=== PATIENT | female | born 1970 | race Two or more races ===

== ENCOUNTER 2017-06-29 19:23 | Observation (INO) | payer MEDICAID ==
[2017-06-29] MEDS ORDERED: NS 500 ML IV ONE ×2 (19:35)
--- NOTE | 2017-06-29 19:35 | EDPHY ---
H & P Stated Complaint: Pt reports having 2 periods and now having CP and SOB Time Seen by Provider: 06/29/17 19:35 HPI/ROS: HPI: This is a 47-year-old female who presents Chief Complaint: Pt reports having 2 periods and now having CP and SOB Location: Quality: Duration: Signs and Symptoms: Timing: Severity: Context: Modifying Factors: Comment: ROS: see HPI Constitutional: No fever, no chills, no weight loss Eyes: No blurred vision Respiratory: No shortness of breath, no cough Cardiovascular: No chest pain Gastrointestinal: No nausea, no vomiting, no diarrhea Genitourinary: No dysuria Extremities: No myalgias Neurologic: No weakness, no numbness Skin: No rashes Hematologic: No bruising, no bleeding MEDICAL/SURGICAL/SOCIAL HISTORY: Medical history: Generally healthy. Does not take any regular medications. Surgical history: Denies Social history: CONSTITUTIONAL: awake and alert, no obvious distress HEENT: Atraumatic and normocephalic, PERRL, EOMI. Tympanic membranes clear. Oropharynx clear, no exudate and moist pink mucosa. Airway patent. No lymphadenopathy. No meningismus. Cardiovascular: Normal S1/S2, regular rate, regular rhythm, without murmur rub or gallop. PULMONARY/CHEST: Symmetrical and nontender. Clear to auscultation bilaterally. Good air movement. No accessory muscle usage. ABDOMEN: Soft, nondistended, nontender, no rebound, no guarding, no peritoneal signs, no masses or organomegaly. No CVAT. EXTREMITIES: 2/2 pulses, strength 5/5, no deformities, no clubbing, no cyanosis or edema. NEUROLOGICAL: no focal neuro deficits. GCS 15. SKIN: Warm and dry, no erythema. no rash. Good capillary refill. Source: Patient Exam Limitations: No limitations - Personal History LMP (Females 10-55): Now Current Tetanus/Diphtheria Vaccine: No Current Tetanus Diphtheria and Acellular Pertussis (TDAP): No - Medical/Surgical History Hx Asthma: No Hx Chronic Respiratory Disease: No Hx Diabetes: No Hx Cardiac Disease: No Hx Renal Disease: No Hx Cirrhosis: No Hx Alcoholism: No Hx HIV/AIDS: No Hx Splenectomy or Spleen Trauma: No Other PMH: tubal - Social History Smoking Status: Never smoked Constitutional: Initial Vital Signs Temperature (C) 36.9 C 06/29/17 19:27 Heart Rate 122 H 06/29/17 19:27 Respiratory Rate 20 06/29/17 19:27 Blood Pressure 211/124 H 06/29/17 19:27 O2 Sat (%) 100 06/29/17 19:27 O2 Delivery Mode Room Air Allergies/Adverse Reactions: No Known Allergies Allergy (Unverified 06/29/17 19:30) Home Medications: Medication Instructions Recorded NK [No Known Home Meds] 06/29/17 Departure - Departure Condition: Fair Referrals: NONE *PRIMARY CARE P,. [Primary Care Provider] - As per Instructions
--- NOTE | 2017-06-29 19:42 | CPEKG ---
Heart Rate: 115 RR Interval: 522 P-R Interval: 148 QRSD Interval: 90 QT Interval: 328 QTC Interval: 454 P [place]: 50 QRS [place]: -7 T Wave [place]: 60 EKG Severity - ABNORMAL ECG - EKG Impression: SINUS TACHYCARDIA EKG Impression: PROBABLE LVH WITH SECONDARY REPOL ABNRM EKG Impression: LATERAL Q WAVES, PROBABLY DUE TO LVH Electronically Signed By: Vamsi Solis 29-Jun-2017 21:32:40
--- NOTE | 2017-06-29 19:47 | EDPHY ---
H & P Stated Complaint: Pt reports having 2 periods and now having CP and SOB Time Seen by Provider: 06/29/17 19:35 HPI/ROS: CHIEF COMPLAINT: Chest pain, shortness of breath, history of heavy uterine bleeding HISTORY OF PRESENT ILLNESS: The patient presents to the ED with a 1 day history of chest pain and shortness of breath which she characterizes as exertional dyspnea. The patient reportedly developed dysfunctional uterine bleeding 2 weeks ago while traveling in [place]. She reportedly was seen at a healthcare facility and was unable to receive a transfusion secondary to lack of blood availability. Over the past several days her bleeding has improved but continues. The patient does have a prior history of tubal ligation. The patient typically has regular periods without dysmenorrhea. The patient does have a history of hypertension and takes no medications for this condition. The patient has not seen a primary care provider secondary to being homeless. REVIEW OF SYSTEMS: A comprehensive 10 point review of systems is otherwise negative aside from elements mentioned in the history of present illness. Source: Patient Exam Limitations: No limitations - Personal History LMP (Females 10-55): Now Current Tetanus/Diphtheria Vaccine: No Current Tetanus Diphtheria and Acellular Pertussis (TDAP): No - Medical/Surgical History Hx Asthma: No Hx Chronic Respiratory Disease: No Hx Diabetes: No Hx Cardiac Disease: No Hx Renal Disease: No Hx Cirrhosis: No Hx Alcoholism: No Hx HIV/AIDS: No Hx Splenectomy or Spleen Trauma: No Other PMH: tubal - Social History Smoking Status: Never smoked - Physical Exam Exam: General Appearance: Alert, no distress Eyes: Pupils equal and round no pallor or injection, pallorous ENT, Mouth: Mucous membranes moist Respiratory: There are no retractions, lungs are clear to auscultation Cardiovascular: Regular rate and rhythm, tachycardic Gastrointestinal: Abdomen is soft and nontender, no masses, bowel sounds normal Pelvic: Patient has a chronic large Bartholin cyst which has been present for decades for noted on the left labia, speculum examination demonstrates no obvious source of bleeding, no significant ongoing hemorrhage noted, scant blood noted in the vault Neurological: A&O, normal motor function, normal sensory exam, normal cranial nerves Skin: Warm and dry, no rashes Musculoskeletal: Neck is supple nontender Extremities: symmetrical, full range of motion Psychiatric: Patient is oriented X 3, there is no agitation Constitutional: Initial Vital Signs Temperature (C) 36.9 C 06/29/17 19:27 Heart Rate 122 H 06/29/17 19:27 Respiratory Rate 20 06/29/17 19:27 Blood Pressure 211/124 H 06/29/17 19:27 O2 Sat (%) 100 06/29/17 19:27 O2 Delivery Mode Room Air Allergies/Adverse Reactions: No Known Allergies Allergy (Unverified 06/29/17 19:30) Home Medications: Medication Instructions Recorded NK [No Known Home Meds] 06/29/17 Medical Decision Making - Diagnostics EKG Interpretation: EKG: Complete interpretation has been separately recorded in the [facility] archive. Summary impression: Sinus tachycardia, LVH, nonspecific ST T wave changes noted. Imaging Results: Imaging Impressions Chest X-Ray 06/29/17 19:35 Impression: Normal. ED Course/Re-evaluation: Patient presents to the ED with multiple issues 1. Is untreated hypertension 2. Is chest pain and dyspnea in the setting of a recent uterine bleed in 3. Is significant anemia. I do believe the etiology of the patient's chest pain and dyspnea secondary to her anemia. The patient is noted to have a hemoglobin of 5.5. She was typed and crossed for 2 units of blood. The patient had no severe uterine bleeding while in the department. The patient does have a history of hypertension which she is not treating. The patient was started on 50 mg of metoprolol for her hypertension and tachycardia. Pelvic exam demonstrates no evidence of an obvious external source of bleeding. There is a scant amount of blood noted in the vaginal canal. A pelvic ultrasound has been ordered. Consultation was made with Dr. Noemi Lebron from the hospitalist service. The patient will be admitted to the hospital for further management of her anemia, hypertension and dysfunctional uterine bleeding. While the patient does have an elevated D-dimer I feel this is consistent with her uterine bleeding and not secondary to pulmonary embolism. I believe the etiology of her dyspnea on exertion is secondary to her anemia. I have not pursued a diagnosis of pulmonary embolism at this point time. Re-examination at 10:45 p.m.: Blood pressure currently 170/100. Heart rate 80. Differential Diagnosis: Differential diagnosis considered includes dysfunctional uterine bleeding, critical anemia, hypertensive emergency, coagulopathy - Data Points Laboratory Results: Laboratory Results 06/29/17 20:00 06/29/17 20:00 06/29/17 06/29/1706/29/17 20:00 20:00 20:00 WBC RBC Hgb POC Hgb Hct POC Hct MCV MCH MCHC RDW Plt Count MPV Neut % (Auto) Lymph % (Auto) [place] % (Auto) Eos % (Auto) Baso % (Auto) Nucleat RBC Rel Count Absolute Neuts (auto) Absolute Lymphs (auto) Absolute Monos (auto) Absolute Eos (auto) Absolute Basos (auto) Absolute Nucleated RBC Immature Gran % Immature Gran # Platelet Estimate Polychromasia Hypochromasia Microcytic Cells Stomatocytes Schistocytes Smear Review By PT 13.3 SEC SEC (12.0-15.0) INR 1.02 (0.83-1.16) APTT 21.0 SEC L SEC (23.0-38.0) D-Dimer POC Sodium Sodium POC Potassium Potassium POC Chloride Chloride Carbon Dioxide Anion Gap POC BUN BUN Creatinine POC Creatinine Estimated GFR Glucose POC Glucose Calcium Total Bilirubin Conjugated Bilirubin Unconjugated Bilirubin AST ALT Alkaline Phosphatase Troponin I NT-Pro-B Natriuret Pep Total Protein Albumin Lipase Beta HCG, Qual NEGATIVE Patient ABO/Rh A NEGATIVE Antibody Screen NEGATIVE Crossmatch IS Only See Detail 06/29/17 06/29/17 06/29/17 20:00 20:00 20:00 WBC 10.05 10^3/uL H 10^3/uL (3.80-9.50) RBC 2.88 10^6/uL L 10^6/uL (4.18-5.33) Hgb 5.5 g/dL L* g/dL (12.6-16.3) POC Hgb Hct 19.4 % L % (38.0-47.0) POC Hct MCV 67.4 fL L fL (81.5-99.8) MCH 19.1 pg L pg (27.9-34.1) MCHC 28.4 g/dL L g/dL (32.4-36.7) RDW 18.3 % H % (11.5-15.2) Plt Count 490 10^3/uL H 10^3/uL (150-400) MPV 9.8 fL fL (8.7-11.7) Neut % (Auto) 56.6 % % (39.3-74.2) Lymph % (Auto) 33.2 % % (15.0-45.0) [place] % (Auto) 7.4 % % (4.5-13.0) Eos % (Auto) 1.9 % % (0.6-7.6) Baso % (Auto) 0.4 % % (0.3-1.7) Nucleat RBC Rel Count 0.2 % % (0.0-0.2) Absolute Neuts (auto) 5.69 10^3/uL 10^3/uL (1.70-6.50) Absolute Lymphs (auto) 3.34 10^3/uL H 10^3/uL (1.00-3.00) Absolute Monos (auto) 0.74 10^3/uL 10^3/uL (0.30-0.80) Absolute Eos (auto) 0.19 10^3/uL 10^3/uL (0.03-0.40) Absolute Basos (auto) 0.04 10^3/uL 10^3/uL (0.02-0.10) Absolute Nucleated RBC 0.02 10^3/uL H 10^3/uL (0-0.01) Immature Gran % 0.5 % % (0.0-1.1) Immature Gran # 0.05 10^3/uL 10^3/uL (0.00-0.10) Platelet Estimate INCREASED H (ADEQ) Polychromasia 2+ H Hypochromasia 3+ H Microcytic Cells 3+ H Stomatocytes 1+ H Schistocytes 1+ H Smear Review By Pending PT INR APTT D-Dimer 0.74 ug/mLFEU H ug/mLFEU (0.00-0.50) POC Sodium Sodium 142 mEq/L mEq/L (134-144) POC Potassium Potassium 3.9 mEq/L mEq/L (3.5-5.2) POC Chloride Chloride 107 mEq/L mEq/L (97-110) Carbon Dioxide 19 mEq/l L mEq/l (22-31) Anion Gap 16 mEq/L mEq/L (8-16) POC BUN BUN 13 mg/dL mg/dL (7-23) Creatinine 0.7 mg/dL mg/dL (0.6-1.0) POC Creatinine Estimated GFR > 60 Glucose 119 mg/dL H mg/dL (70-100) POC Glucose Calcium 9.2 mg/dL mg/dL (8.5-10.4) Total Bilirubin 0.2 mg/dL mg/dL (0.1-1.4) Conjugated Bilirubin 0.0 mg/dL mg/dL (0.0-0.5) Unconjugated Bilirubin 0.2 mg/dL mg/dL (0.0-1.1) AST 30 IU/L IU/L (14-46) ALT 28 IU/L IU/L (9-52) Alkaline Phosphatase 73 IU/L IU/L (38-126) Troponin I < 0.012 ng/mL ng/mL (0.000-0.034) NT-Pro-B Natriuret Pep 70 pg/mL pg/mL (0-125) Total Protein 7.0 g/dL g/dL (6.3-8.2) Albumin 4.1 g/dL g/dL (3.5-5.0) Lipase 115 IU/L IU/L (23-300) Beta HCG, Qual Patient ABO/Rh Antibody Screen Crossmatch IS Only 06/29/17 19:57 WBC RBC Hgb POC Hgb 6.5 gm/dL L gm/dL (12.6-16.3) Hct POC Hct 19 % L % (38-47) MCV MCH MCHC RDW Plt Count MPV Neut % (Auto) Lymph % (Auto) [place] % (Auto) Eos % (Auto) Baso % (Auto) Nucleat RBC Rel Count Absolute Neuts (auto) Absolute Lymphs (auto) Absolute Monos (auto) Absolute Eos (auto) Absolute Basos (auto) Absolute Nucleated RBC Immature Gran % Immature Gran # Platelet Estimate Polychromasia Hypochromasia Microcytic Cells Stomatocytes Schistocytes Smear Review By PT INR APTT D-Dimer POC Sodium 143 mEq/L mEq/L (134-144) Sodium POC Potassium 3.5 mEq/L mEq/L (3.3-5.0) Potassium POC Chloride 110 mEq/L mEq/L (97-110) Chloride Carbon Dioxide Anion Gap POC BUN 13 mg/dL mg/dL (7-23) BUN Creatinine POC Creatinine 0.7 mg/dL mg/dL (0.6-1.0) Estimated GFR Glucose POC Glucose 125 mg/dL H mg/dL (70-100) Calcium Total Bilirubin Conjugated Bilirubin Unconjugated Bilirubin AST ALT Alkaline Phosphatase Troponin I NT-Pro-B Natriuret Pep Total Protein Albumin Lipase Beta HCG, Qual Patient ABO/Rh Antibody Screen Crossmatch IS Only Medications Given: Discontinued Medications Diphenhydramine HCl (Benadryl Injection) 50 mg IVP EDNOW ONE Stop: 06/29/17 22:20 Last Admin: 06/29/17 22:29 Dose: 50 mg Sodium Chloride (Ns) 500 mls @ 1,000 mls/hr IV EDNOW ONE PRN Reason: Protocol Stop: 06/29/17 20:04 Last Admin: 06/29/17 20:05 Dose: 500 mls Sodium Chloride (Ns) 500 mls @ 0 mls/hr IV EDNOW ONE; Wide Open PRN Reason: Protocol Stop: 06/29/17 19:36 Last Admin: 06/29/17 20:05 Dose: 500 mls Metoprolol Tartrate (Lopressor) 50 mg PO EDNOW ONE Stop: 06/29/17 21:21 Last Admin: 06/29/17 21:32 Dose: 50 mg Point of Care Test Results: 06/29/17 19:57 POC Sodium 143 POC Potassium 3.5 POC Chloride 110 POC BUN 13 POC Creatinine 0.7 POC Glucose 125 H Departure - Departure Disposition: [facility] Inpatient Acute Clinical Impression: Anemia, Hypertension, Dyspnea Condition: Fair
[2017-06-29 20:34] LABS: % IMMATURE GRANULYOCYTES 0.5 % (0.0-1.1); ABSOLUTE IMMATURE GRANULOCYTES 0.05 10^3/uL (0.00-0.10); ABSOLUTE NRBC COUNT 0.02 10^3/uL (0-0.01); ADD DIFF? NO; ADD MORPH? YES; ADD SCAN? NO; ATYPICAL LYMPHOCYTE FLAG 20 (0-99); FRAGMENT RBC FLAG 40 (0-99); HEMATOCRIT 19.4 % (38.0-47.0); LEFT SHIFT FLG 0 (0-99); LIPEMIA HEMOLYSIS FLAG 70 (0-99); MEAN CELL HEMOGLOBIN 19.1 pg (27.9-34.1); MEAN PLATELET VOLUME 9.8 fL (8.7-11.7); NRBC-AUTO% 0.2 % (0.0-0.2); PLATELET CLUMPS FLAG 0 (0-99); PLATELET COUNT 490 10^3/uL (150-400); RED BLOOD CELL COUNT 2.88 10^6/uL (4.18-5.33); RED CELL DISTRIBUTION WIDTH 18.3 % (11.5-15.2)
[2017-06-29 20:39] LABS: ALANINE AMINOTRANSFERASE 28 IU/L (9-52); ALBUMIN 4.1 g/dL (3.5-5.0); ALKALINE PHOSPHATASE 73 IU/L (38-126); ANION GAP 16 mEq/L (8-16); ASPARTATE AMINOTRANSFERASE 30 IU/L (14-46); BILIRUBIN,TOTAL 0.2 mg/dL (0.1-1.4); BILIRUBIN-UNCONJUGATED 0.2 mg/dL (0.0-1.1); CALCIUM 9.2 mg/dL (8.5-10.4); CARBON DIOXIDE 19 mEq/l (22-31); CHLORIDE 107 mEq/L (97-110); CREATININE 0.7 mg/dL (0.6-1.0); GLOMERULAR FILTRATION RATE > 60; GLUCOSE 119 mg/dL (70-100); MEAN CELL HEMOGLOBIN CONCENTR. 28.4 g/dL (32.4-36.7); MEAN CELL VOLUME 67.4 fL (81.5-99.8); POTASSIUM 3.9 mEq/L (3.5-5.2); SODIUM 142 mEq/L (134-144)
[2017-06-29 20:42] LABS: HEMOGLOBIN 5.5 g/dL (12.6-16.3)
[2017-06-29 20:51] LABS: TROPONIN I < 0.012 ng/mL (0.000-0.034)
[2017-06-29 21:06] LABS: HYPOCHROMIA 3+; MICROCYTES 3+; PLATELET ESTIMATE INCREASED (ADEQ); POLYCHROMASIA 2+; SCHISTOCYTES 1+; STOMATOCYTES 1+
[2017-06-29] MEDS ORDERED: METOPROLOL TARTRATE 50 MG TAB PO ONE (21:20)
[2017-06-29 22:32] LABS: INR 1.02 (0.83-1.16); PROTIME(PATIENT) 13.3 SEC (12.0-15.0)
[2017-06-29] MEDS ORDERED: LORazepam 0.5 MG TAB PO PRN (22:58)
[2017-06-29] MEDS ORDERED: diphenhydrAMINE 25 MG CAP PO PRN (22:58)
[2017-06-29] MEDS ORDERED: HYDROCODONE/APAP 5/325 TAB PO PRN (22:58)
[2017-06-29] MEDS ORDERED: ONDANSETRON 4 MG/2 ML VIAL IVP PRN (22:58)
[2017-06-29] MEDS ORDERED: ACETAMINOPHEN 325 MG TAB PO PRN (22:58)
[2017-06-29] MEDS ORDERED: NS 1,000 ML IV SCH (23:00)
[2017-06-30] MEDS ORDERED: hydrALAZINE 20 MG/ML VIAL IVP PRN (01:27)
[2017-06-30 05:18] LABS: % IMMATURE GRANULYOCYTES 0.7 % (0.0-1.1); ABSOLUTE IMMATURE GRANULOCYTES 0.07 10^3/uL (0.00-0.10); ABSOLUTE NRBC COUNT 0.02 10^3/uL (0-0.01); ADD DIFF? NO; ADD MORPH? YES; ADD SCAN? NO; ATYPICAL LYMPHOCYTE FLAG 20 (0-99); FRAGMENT RBC FLAG 40 (0-99); HEMATOCRIT 24.5 % (38.0-47.0); LEFT SHIFT FLG 0 (0-99); LIPEMIA HEMOLYSIS FLAG 70 (0-99); MEAN CELL HEMOGLOBIN 20.6 pg (27.9-34.1); MEAN CELL VOLUME 72.3 fL (81.5-99.8); MEAN PLATELET VOLUME 9.9 fL (8.7-11.7); NRBC-AUTO% 0.2 % (0.0-0.2); PLATELET CLUMPS FLAG 0 (0-99); PLATELET COUNT 397 10^3/uL (150-400); RED BLOOD CELL COUNT 3.39 10^6/uL (4.18-5.33)
[2017-06-30 05:23] LABS: MEAN CELL HEMOGLOBIN CONCENTR. 28.6 g/dL (32.4-36.7); RED CELL DISTRIBUTION WIDTH 20.3 % (11.5-15.2)
[2017-06-30 05:37] LABS: ANION GAP 12 mEq/L (8-16); CALCIUM 8.4 mg/dL (8.5-10.4); CARBON DIOXIDE 20 mEq/l (22-31); CHLORIDE 109 mEq/L (97-110); CREATININE 0.7 mg/dL (0.6-1.0); GLOMERULAR FILTRATION RATE > 60; GLUCOSE 89 mg/dL (70-100); POTASSIUM 3.7 mEq/L (3.5-5.2); SODIUM 141 mEq/L (134-144)
[2017-06-30 06:28] LABS: HYPOCHROMIA 3+; MICROCYTES 3+; PLATELET ESTIMATE ADEQUATE (ADEQ); POLYCHROMASIA 2+
[2017-06-30 06:29] LABS: SCHISTOCYTES 1+; STOMATOCYTES 1+
[2017-06-30] MEDS ORDERED: LISINOPRIL 20 MG TAB PO SCH (09:00)
--- NOTE | 2017-06-30 09:14 | PDGENHP ---
History and Physical - Chief Complaint chest pain, shortness of breath - History of Present Illness Source - patient provides history and appears reliable. EMR also reviewed. HPI - Pleasant 47 yo F with pmhx significant for untreated hypertension who presents to the ED with complaints of heavy vaginal bleeding, SCHNEIDER and chest pain with exertion for the last 2 weeks. Patient reports she was vacationing in [place] when she developed heavy bleeding. She presented to the local hospital, received "a shot" 06/15/17 she thinks may have been hormones but did not receive any transfusions or other therapies. Patient reports regular cycles 28 days normally however patient had a her usual period and a week later developed menorrhagia. She does reports recent history of flushing/sweating. She reports some mild pelvic cramping. flow has decreased significantly in the last few days but patient continues to have chest pain and SCHNEIDER. Patient denies any syncopal episodes but does not increased fatigue and generalized weakness. Patient also with history of untreated HTN. she reports occasional BARLOW and bounding in ears "when my blood pressure is up." She denies any focal weakness/ changes in vision. History Information - Allergies/Home Medication List Allergies/Adverse Reactions: egg Allergy (Verified 06/30/17 07:58) Home Medications: Acetaminophen [Tylenol 325mg (*)] 325 mg PO DAILY PRN 06/30/17 [Last Taken Unknown] I have personally reviewed and updated: family history, medical history, social history, surgical history - Past Medical History hypertension - Surgical History Additional surgical history: BTL - Family History Additional family history: maternal uncle with throat cancer. no DUB. no DVTs. patient 5 children are all healthy - Social History Smoking Status: Never smoked Alcohol Use: None Drug Use: None Additional social history: Patient currently living with her daughter. was previously homeless. COR FULL- desires daughter Madie Guevara to act as proxy. Review of Systems Review of Systems: ROS: 10pt was reviewed & negative except for what was stated in HPI & below Constitutional: Reports: chills, malaise. Denies: fever EENMT: Reports: no symptoms Cardiac: Reports: chest pain, lightheadedness, palpitations. Denies: edema, syncope Respiratory: Reports: cough (occasional dry cough), shortness of breath. Denies : orthopnea Gastrointestinal: Reports: vomitting, nausea. Denies: diarrhea Genitourinary: Denies: dysuria, hematuria Muscolosketal: Reports: no symptoms Neurological: Reports: headache. Denies: anxiety, depressed, numbness, tingling , weakness Physical Exam Physical Exam: Temp Pulse Resp BP Pulse Ox 36.6 C 85 18 160/110 H 95 06/30/17 07:23 06/30/17 07:23 06/30/17 07:23 06/30/17 07:23 06/30/17 07:23 Constitutional: no apparent distress, not in pain, obese, other (NAD. patient lays quietly in bed. pleasant in good spirits. ) Eyes: PERRL, anicteric sclera, EOMI, No pale conjunctiva Ears, Nose, Mouth, Throat: dry mucous membranes, No poor dentition Cardiovascular: regular rate and rhythym, no murmur, rub, or gallop, No edema Peripheral Pulses: 2+: dorsalis-pedis (R), dorsalis-pedis (L) Respiratory: no respiratory distress, no rales or rhonchi, clear to auscultation Gastrointestinal: normoactive bowel sounds, soft, non-tender abdomen, no palpable masses Genitourinary: no bladder tenderness, No whittaker in urethra Skin: warm, no rashes or abrasions, other (pallor) Musculoskeletal: full muscle strength Neurologic: AAOx3, sensation intact bilaterally, CN II-XII Intact, No weakness, No facial droop Psychiatric: interacting appropriately, not anxious, thought process linear, No anxious, No depressed, No poor insight, No poor judgement, No poor memory Lab Data & Imaging Review 06/30/17 03:41 06/30/17 03:41 WBC 10.35 10^3/uL (3.80-9.50) H 06/30/17 03:41 RBC 3.39 10^6/uL (4.18-5.33) L 06/30/17 03:41 Hgb 7.0 g/dL (12.6-16.3) L 06/30/17 03:41 POC Hgb 6.5 gm/dL (12.6-16.3) L 06/29/17 19:57 Hct 24.5 % (38.0-47.0) L 06/30/17 03:41 POC Hct 19 % (38-47) L 06/29/17 19:57 MCV 72.3 fL (81.5-99.8) L 06/30/17 03:41 MCH 20.6 pg (27.9-34.1) L 06/30/17 03:41 MCHC 28.6 g/dL (32.4-36.7) L 06/30/17 03:41 RDW 20.3 % (11.5-15.2) H 06/30/17 03:41 Plt Count 397 10^3/uL (150-400) D 06/30/17 03:41 MPV 9.9 fL (8.7-11.7) 06/30/17 03:41 Neut % (Auto) 55.3 % (39.3-74.2) 06/30/17 03:41 Lymph % (Auto) 32.4 % (15.0-45.0) 06/30/17 03:41 Bibb % (Auto) 8.7 % (4.5-13.0) 06/30/17 03:41 Eos % (Auto) 2.2 % (0.6-7.6) 06/30/17 03:41 Baso % (Auto) 0.7 % (0.3-1.7) 06/30/17 03:41 Nucleat RBC Rel Count 0.2 % (0.0-0.2) 06/30/17 03:41 Absolute Neuts (auto) 5.73 10^3/uL (1.70-6.50) 06/30/17 03:41 Absolute Lymphs (auto) 3.35 10^3/uL (1.00-3.00) H 06/30/17 03:41 Absolute Monos (auto) 0.90 10^3/uL (0.30-0.80) H 06/30/17 03:41 Absolute Eos (auto) 0.23 10^3/uL (0.03-0.40) 06/30/17 03:41 Absolute Basos (auto) 0.07 10^3/uL (0.02-0.10) 06/30/17 03:41 Absolute Nucleated RBC 0.02 10^3/uL (0-0.01) H 06/30/17 03:41 Immature Gran % 0.7 % (0.0-1.1) 06/30/17 03:41 Immature Gran # 0.07 10^3/uL (0.00-0.10) 06/30/17 03:41 Platelet Estimate ADEQUATE (ADEQ) 06/30/17 03:41 Polychromasia 2+ H 06/30/17 03:41 Hypochromasia 3+ H 06/30/17 03:41 Basophilic Stippling 1+ H 06/30/17 03:41 Microcytic Cells 3+ H 06/30/17 03:41 Stomatocytes 1+ H 06/30/17 03:41 Schistocytes 1+ H 06/30/17 03:41 PT 13.3 SEC (12.0-15.0) 06/29/17 20:00 INR 1.02 (0.83-1.16) 06/29/17 20:00 APTT 21.0 SEC (23.0-38.0) L 06/29/17 20:00 D-Dimer 0.74 ug/mLFEU (0.00-0.50) H 06/29/17 20:00 POC Sodium 143 mEq/L (134-144) 06/29/17 19:57 Sodium 141 mEq/L (134-144) 06/30/17 03:41 POC Potassium 3.5 mEq/L (3.3-5.0) 06/29/17 19:57 Potassium 3.7 mEq/L (3.5-5.2) 06/30/17 03:41 POC Chloride 110 mEq/L (97-110) 06/29/17 19:57 Chloride 109 mEq/L (97-110) 06/30/17 03:41 Carbon Dioxide 20 mEq/l (22-31) L 06/30/17 03:41 Anion Gap 12 mEq/L (8-16) 06/30/17 03:41 POC BUN 13 mg/dL (7-23) 06/29/17 19:57 BUN 9 mg/dL (7-23) 06/30/17 03:41 Creatinine 0.7 mg/dL (0.6-1.0) 06/30/17 03:41 POC Creatinine 0.7 mg/dL (0.6-1.0) 06/29/17 19:57 Estimated GFR > 60 06/30/17 03:41 Glucose 89 mg/dL (70-100) 06/30/17 03:41 POC Glucose 125 mg/dL (70-100) H 06/29/17 19:57 Calcium 8.4 mg/dL (8.5-10.4) L 06/30/17 03:41 Total Bilirubin 0.2 mg/dL (0.1-1.4) 06/29/17 20:00 Conjugated Bilirubin 0.0 mg/dL (0.0-0.5) 06/29/17 20:00 Unconjugated Bilirubin 0.2 mg/dL (0.0-1.1) 06/29/17 20:00 AST 30 IU/L (14-46) 06/29/17 20:00 ALT 28 IU/L (9-52) 06/29/17 20:00 Alkaline Phosphatase 73 IU/L (38-126) 06/29/17 20:00 Troponin I < 0.012 ng/mL (0.000-0.034) 06/29/17 20:00 NT-Pro-B Natriuret Pep 70 pg/mL (0-125) 06/29/17 20:00 Total Protein 7.0 g/dL (6.3-8.2) 06/29/17 20:00 Albumin 4.1 g/dL (3.5-5.0) 06/29/17 20:00 Lipase 115 IU/L (23-300) 06/29/17 20:00 TSH 5.550 uIU/mL (0.465-4.680) H 06/30/17 03:41 Beta HCG, Qual NEGATIVE 06/29/17 20:00 Patient ABO/Rh A NEGATIVE 06/29/17 20:00 Antibody Screen NEGATIVE 06/29/17 20:00 Crossmatch IS Only See Detail 06/29/17 20:00 Imaging Review: Transabdominal and Endovaginal Pelvic Sonography Clinical History: 47-year-old homeless female with dysfunctional uterine bleeding, chest pain, shortness of breath, untreated hypertension, critical anemia, and a negative beta-hCG test. LMP: 06/15/17. The patient is . Technique: A curvilinear 5 MHz transducer was initially used to sonographically evaluate the pelvis, using a full urinary bladder as a window. To better assess the uterine architecture and the adnexal structures, endovaginal pelvic sonography was also performed. Color and spectral Doppler were used. The striker off noted enlargement of the left labia, however the patient reports that it is has been this way for 21 years, since the time of her last . Comparison: None. Findings: Transabdominal Pelvic Sonography: The uterus is enlarged, heterogeneous, and lobulated, measuring 14.4 x 9.4 x 8.7 cm (volume of 614 mL). There is an intramural/submucosal 4.6 x 4.0 x 4.1 cm fibroid in the right uterine fundus, as well as a 4.2 x 3.2 x 3.8 cm intramural/submucosal fibroid in the left uterine fundus. There are also 3 rounded anechoic myometrial cysts, the largest measuring 1.1 x 1.0 x 1.3 cm at the level of the central upper fundus. The right and left ovaries are not visualized. There is no free fluid. Endovaginal Pelvic Sonography: The endometrium is thickened and mildly heterogeneous with hypoechoic complex fluid, in aggregate measuring up to 31.5 mm. There is no unusual hyperemia with color Doppler, however. There are the aforementioned fibroids. The ovaries are not identified, with bowel gas obscuring the adnexal regions. There is no free fluid in the pelvic cul-de-sac. There is asymmetric enlargement of the left labia, reportedly a chronic finding. Impression: 1. Uteromegaly with myometrial heterogeneity, and 2 discrete fundal intramural- submucosal fibroids. 2. Thickening of the endometrium with complex canal fluid. Gynecologic follow- up is suggested. 3. Nonvisualization of the ovaries, despite transabdominal and endovaginal protocols. 4. Chronically swollen/thickened left labia. I attempted to convey this information to Hieu Mckeon M.D. at 0:28, on . Upright Chest, PA and Lateral Views, at 7:27 PM Clinical History: 47-year-old female with chest pain. Comparison Study: None. Findings: Telemetry monitoring lead lines are present. The cardiac and mediastinal silhouette is normal in size. There is no focal infiltrate, atelectasis, pleural effusion, peripheral interstitial edema, or pneumothorax. The osseous structures are age-appropriate. Impression: Normal. EKG Interpretation: Positive for: LVH EKG additional interpertation: sinus tachycardia 110s. LVH with role changes. lat q waves. qtc 454. no acute ST elvations. Assessment & Plan Assessment: acute blood loss anemia - s/p transfusion. BPs remain elevated. overall patient reports resolution of her cp and sob sx. plan to monitor and repeat. pt has not had any large volume vaginal bleeding since arrival to ED/floor and reports only spotting last few days. CP/SOB - resolved. no acute findings on EKG. sx resolved after 2 units prbc. DUB - patient with fibroids and endometrial thickening. 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 consultation. again patient vaginal bleeding now reported just spoting last few days. elevated d-dimer - likely falsely elevated given patient acute medical state. currently asx and tachycardia improved. consider additional imaging if patient sx worsen. accelerated HTN - BPs elevated s/p hydralazine. likely chronically elevated and will try to decreased slowly goal <180, 100s for now. start patient on lisinopril. renal function acceptable. advised patient to establish with new PCP for close BP follow up. LVH - BP control advised to patient as above. obesity (BMI 33.1) - lifestyle modifications. FEN - IVF patient still appears dry. electrolyte replacement prn. cardiac diet. PPX - SCDs. anticoagulation contraindicated in setting of actue bleed/anemia. COR - FULL. patient desires daughter Madie Guevara to act as proxy if needed. Dispo - patient admitted to observation on PCU for close monitoring given elevated BPs and sever anemia.
--- NOTE | 2017-06-30 10:19 | ASMTCASEMG ---
Living Arrangements What is your living Answers: With Child(siri) arrangement? Who do you live with? Type Of Residence What kind of residence do Answers: House you live in? Discharge Plan Comments Coordination Status Comments Notes: Pt is a 47 y/o female admitetd for anemia. Anticipates that pt will most likely d/c when medically stable w/ supportive daughter. Pt will most likely follow up w/ outpatient OBGYN. No therapies ordered at this time. CM available for d/c needs. Date Signed: 06/30/2017 10:18 AM Electronically Signed By:DOLLY Winchester
[2017-06-30 11:23] VITALS: BP 144/99; PULSE 91; RESP 16; TEMP 98.5; O2SAT 97
[2017-06-30 12:14] LABS: HEMATOCRIT 24.8 % (38.0-47.0); HEMOGLOBIN 7.5 g/dL (12.6-16.3)
--- NOTE | 2017-06-30 12:51 | HOSPPROG ---
Hospitalist Progress Note Assessment/Plan: #Acute blood loss anemia: uterine fibroids. Responded to 2 units. PO iron at DC #Fibroids: no pain now. Spoke with Dr. Anderson with [facility]. appt in 2-3 wks #Menorrhagia: due to fibroids, plans as above #Chest pain/SOB: due to severe anemia #HTN: was on BP meds prior to being homeless. Restart Lisinopril. [facility] #Social issues: was homeless, now living with daughter #Diet: regular #DVT ppx: SCDs #Disp: DC today Subjective: feeling much better. No CP or SOB Objective: Vital Signs Temp Pulse Resp BP Pulse Ox 36.9 C 91 16 144/99 H 97 06/30/17 11:21 06/30/17 11:21 06/30/17 11:21 06/30/17 11:21 06/30/17 11:21 Laboratory Results 06/30/17 12:09 06/30/17 03:41 06/29/17 06/30/17 07/01/17 05:59 05:59 05:59 Intake Total 1750 Balance 1750 PT 13.3 SEC (12.0-15.0) 06/29/17 20:00 INR 1.02 (0.83-1.16) 06/29/17 20:00 - Physical Exam Constitutional: no apparent distress Eyes: PERRL Ears, Nose, Mouth, Throat: moist mucous membranes, hearing normal Cardiovascular: regular rate and rhythym, no murmur, rub, or gallop Respiratory: no respiratory distress, no rales or rhonchi Gastrointestinal: normoactive bowel sounds Genitourinary: no bladder fullness, No no bladder tenderness Skin: warm Musculoskeletal: full muscle strength Neurologic: AAOx3, CN II-XII Intact Psychiatric: interacting appropriately ICD10 Worksheet Patient Problems: Problems Problem Status Onset Anemia Acute Dyspnea Acute Hypertension Acute
--- NOTE | 2017-06-30 16:08 | ASDISCHSUM ---
Discharge Information Plan Status:Home with No Needs Medically Cleared to Leave:06/29/2017 Discharge Date:06/30/2017 03:48 PM CM D/C Disposition: ADT D/C Disposition:Home, Routine, Self-Care Projected Discharge Date:06/30/2017 12:00 AM Transportation at D/C: Discharge Delay Reason: Follow-Up Date:06/30/2017 12:00 AM Discharge Slot: Final Diagnosis: Placement Information Patient Contact Information Contact Name:DIONICIO Relationship:Daughter Address:[address] [address] Work Phone: City:[place] Alternate Phone: [facility]/Zip Code:[place] [address] Email: Financial Information Financial Class: Primary 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 Who do you live with? Type Of Residence What kind of residence do Answers: House you live in? Discharge Plan Comments Coordination Status Comments Notes: Pt is a 47 y/o female admitetd for anemia. Anticipates that pt will most likely d/c when medically stable w/ supportive daughter. Pt will most likely follow up w/ outpatient OBGYN. No therapies ordered at this time. CM available for d/c needs. Date Signed: 06/30/2017 10:18 AM Electronically Signed By:DOLLY Winchester Intervention Information
--- NOTE | 2017-06-30 19:19 | GDS ---
[f rep st] DISCHARGE SUMMARY DISCHARGE DIAGNOSES: 1. Acute blood loss anemia. 2. Menorrhagia. 3. Fibroids. 4. Accelerated hypertension. 5. Chest pain. 6. Shortness of breath. 7. Tachycardia. HISTORY OF PRESENT ILLNESS: A 47-year-old female with a history of hypertension , off BP meds due to social situation, presented to the ED with heavy vaginal bleeding, dyspnea with exertion, and chest pain. She normally has periods monthly 5-7 days, using 2-3 pads a day. Her period started on 06/15/2017 and has continued since then, requiring up to 15 pads a day. She was in [place] during the heaviest portion of bleeding and went to the hospital there. They gave her a shot, which she thinks was a hormone, but did not receive any transfusions. She does report flushing, and sweating, and mild pelvic cramping this month, which is abnormal for her. HOSPITAL COURSE BY PROBLEM: 1. Acute blood loss anemia: Secondary to menorrhagia. Hemoglobin was less than 6 upon arrival. She has received 2 units of packed RBCs with stable H and H. This is secondary to menorrhagia. There are small fibroids on ultrasound. 2. Dysfunctional uterine bleeding: Again, secondary to fibroids. There is evidence of endometrial thickening as well. I talked to Dr. Anderson with Gynecology, who stated this may be perimenopausal. Today, the patient is having minimal spotting. She will make an appointment to follow up within 2-3 weeks. 3. Tachycardia secondary to anemia: This has resolved. 4. Chest pain, shortness of breath: Again, secondary to severe anemia. These symptoms have resolved. 5. Accelerated hypertension: She has been on blood pressure medications in the past, but had to stop these because she was homeless. Restarted lisinopril 20 mg here. Advised her to follow up with [facility] for repeat blood pressure. 6. Obesity: Counseled on lifestyle modifications. DISPOSITION: The patient is stable for discharge home with her daughter. FOLLOWUP: 1. Dr. Anderson with Gynecology. 2. Make an appointment at [facility] for followup blood pressure, CBC, and BMP. Time spent on discharge 35 minutes coordinating discharge and discussing case with Dr. Anderson, and followup instructions with patient. /[id number]/MODL MTDD
== END 2017-06-30 15:48 | disposition home or self-care (01) ==
LOC: F2W 06-30 00:12
PROVIDERS: ADMIT Internal Medicine; ATTEND Internal Medicine
DX: D50.0 Iron deficiency anemia secondary to blood loss (chronic) (principal); N92.0 Excessive and frequent menstruation with regular cycle; D25.1 Intramural leiomyoma of uterus; I10 Essential (primary) hypertension; R07.9 Chest pain, unspecified; R06.02 Shortness of breath; R00.0 Tachycardia, unspecified
CPT/HCPCS: 71020; 76856; 93005; G0378; P9016; 82947-QW; J0360; J1200